=== PATIENT | male | born 1995 | race Caucasian/White ===

== ENCOUNTER → 2020-12-26 13:46 | Outpatient (BNVA) | payer OTHER, SELFPAY | PROVIDERS: PCP Physician Assistant; Visit Provider Internal Medicine ==

== ENCOUNTER → 2021-02-20 09:27 | Outpatient (BNVA) | payer OTHER, SELFPAY | PROVIDERS: PCP Physician Assistant; Visit Provider Internal Medicine ==

== ENCOUNTER 2021-02-25 07:58 | Outpatient (REF) | payer OTHER, SELFPAY ==
[2021-02-25 09:13] LABS: Anion Gap 11 (12-20); Blood Urea Nitrogen 17 mg/dL (9-16); Carbon Dioxide 27 mmol/L (22-29); Chloride 104 mmol/L (96-108); Estimated Glomerular Filt Rate > 60; Glucose Random 94 mg/dL (60-115); Potassium 4.4 mmol/L (3.3-5.1); Sodium 138 mmol/L (135-145)
[2021-02-25 09:23] LABS: Osmolality, Serum 291 mosm/kg (281-305)
[2021-02-25 09:32] LABS: Osmolality Urine 703 mosm/kg (373-1093)
[2021-02-25 09:37] LABS: Free T4 (Free Thyroxine) 0.91 ng/dL (0.71-1.85); Thyroid Stimulating Hormone 2.65 uIU/mL (0.32-4.0)
[2021-02-27 05:42] LABS: Triiodothyronine T3 Total 104 ng/dL (76-181)
[2021-02-27 06:21] LABS: Sex Hormone Binding Globulin 26 nmol/L (10-50)
[2021-03-01 15:07] LABS: IGF-1 (Somatomedin C) 305 ng/mL (83-456)
[2021-03-01 18:21] LABS: Adrenocorticotropic Hormone 7 pg/mL (6-50)
[2021-03-01 23:12] LABS: Estradiol Ultra Sensitive 4 pg/mL (< OR = 29)
[2021-03-02 16:31] LABS: Testosterone, Total 13 ng/dL (250-1100)
[2021-03-04 21:56] LABS: Follicle Stimulating Hormone 0.9 mIU/mL (1.6-8.0); Lutenizing Hormone <0.2 mIU/mL (1.5-9.3); Prolactin Undiluted 5.7 ng/mL (2.0-18.0)
== END 2021-02-25 07:59 | disposition home or self-care (01) ==
LOC: HO.LAB 07:58
PROVIDERS: Visit Provider Internal Medicine
DX: E29.1 Testicular hypofunction (principal)
CPT/HCPCS: 36415; 80048; 82024; 82533; 82670; 83001; 83002; 83930; 83935; 84146; 84270; 84305; 84402; 84403; 84439; 84443; 84480

== ENCOUNTER → 2021-05-08 08:49 | Outpatient (BNVA) | payer OTHER, SELFPAY | PROVIDERS: Visit Provider Internal Medicine ==

== ENCOUNTER 2021-05-16 06:34 | Outpatient (REF) | payer OTHER, SELFPAY ==
[2021-05-16 07:18] LABS: Hematocrit 43.2 % (42-52)
[2021-05-16 07:46] LABS: Albumin Level 4.6 g/dL (3.5-5.0); Anion Gap 12 (12-20); Blood Urea Nitrogen 12 mg/dL (9-16); Calcium 10.2 mg/dL (8.4-10.2); Carbon Dioxide 28 mmol/L (22-29); Chloride 104 mmol/L (96-108); Estimated Glomerular Filt Rate > 60; Glucose Random 103 mg/dL (60-115); Phosphorus 4.6 mg/dL (2.7-4.5); Potassium 5.1 mmol/L (3.3-5.1); Sodium 139 mmol/L (135-145)
[2021-05-16 08:08] LABS: Prostate Specific Antigen 0.22 ng/mL (<0.05-4.0); Vitamin D 25-OH Total 19.4 ng/mL (>30)
[2021-05-17 16:16] LABS: Adrenocorticotropic Hormone 20 pg/mL (6-50)
[2021-05-17 19:32] LABS: Calcium (PTHI) 10.2 mg/dL (8.6-10.3); PTHI 40 pg/mL (14-64)
[2021-05-18 06:56] LABS: Sex Hormone Binding Globulin 26 nmol/L (10-50)
[2021-05-23 21:02] LABS: Testosterone, Free 2.2 pg/mL (35.0-155.0); Testosterone, Total 15 ng/dL (250-1100)
== END 2021-05-16 06:35 | disposition home or self-care (01) ==
LOC: HO.LAB 06:34
PROVIDERS: PCP Physician Assistant; Visit Provider Internal Medicine
DX: E23.0 Hypopituitarism (principal); M85.80 Other specified disorders of bone density and structure, unspecified site; E55.9 Vitamin D deficiency, unspecified; Z12.5 Encounter for screening for malignant neoplasm of prostate
CPT/HCPCS: 36415; 80048; 82024; 82040; 82306; 82533; 83970; 84100; 84153; 84270; 84402; 84403; 85014; 85018

== ENCOUNTER 2021-05-20 08:11 | Outpatient (REF) | payer OTHER, SELFPAY ==
[2021-05-21 21:22] LABS: Cortisol 60 Minute 33.8 mcg/dL; Cortisol Baseline 14.1 mcg/dL; Cortisol Baseline Time 1 BASELINE
[2021-05-21 22:22] LABS: Adrenocorticotropic Hormone 20 pg/mL (6-50)
== END 2021-05-20 08:12 | disposition home or self-care (01) ==
LOC: HO.MDS 08:11
PROVIDERS: PCP Internal Medicine; Visit Provider Internal Medicine
DX: E27.40 Unspecified adrenocortical insufficiency (principal)
CPT/HCPCS: 36415; 82024; 82533; 96374; J0834

== ENCOUNTER 2021-05-21 10:58 | Outpatient (REF) | payer OTHER, SELFPAY ==
--- NOTE | ~2021-05-21 | MR_ITS ---
EXAMINATION: MR BRAIN WITHOUT AND WITH CONTRAST CLINICAL INFORMATION: Hypopituitarism. COMPARISON: None. TECHNIQUE: Multiplanar, multisequential imaging was obtained without and with intravenous administration of contrast. Intravenous contrast: Gadavist 4 mL. Slightly limited study with motion artifacts. FINDINGS: No abnormal focus of decreased differential enhancement is seen within the pituitary gland. The infundibulum is midline. The cavernous sinuses opacify symmetrically. The internal carotid artery flow voids are maintained. No suprasellar soft tissue abnormality is seen. No diffusion abnormalities are identified to suggest an acute or subacute infarct. The ventricles are normal in size. No mass effect or midline shift is seen. No brain parenchymal signal abnormalities are seen. No extra-axial fluid collections are noted. The brainstem and cerebellum are normal. On postcontrast imaging, there is no abnormal parenchymal or leptomeningeal enhancement. The craniovertebral junction, marrow signal, and midline structures are normal. The mastoid air cells and paranasal sinuses are well aerated. MR/MR head/brain wo/w con IMPRESSION: No pituitary abnormality identified. Normal slightly limited MRI of the brain with motion artifacts. No acute process.
== END 2021-05-21 10:59 | disposition home or self-care (01) ==
LOC: HO.MRI 10:58
PROVIDERS: PCP Internal Medicine; Visit Provider Internal Medicine
DX: E23.0 Hypopituitarism (principal)
CPT/HCPCS: 70553; A9585

== ENCOUNTER 2021-05-22 14:39 | Outpatient (REF) | payer OTHER, SELFPAY ==
--- NOTE | ~2021-05-22 | MM_ITS ---
EXAMINATION: BONE DENSITOMETRY CLINICAL INDICATION: Other specified disorders of bone density and structure. Age 25, male. COMPARISON: None (current study represents initial baseline exam). TECHNIQUE: Using a [employer] DXA System (software version: 13.1) manufactured by [employer], dual-energy x-ray absorptiometry was performed of the lumbar spine and left hip. The images are of good technical quality. Based on ISCD (International Society for Clinical Densitometry) standards of reporting, Z-scores instead of T-scores are reported in this male patient younger than age 50. Summary results are attached. FINDINGS: AP SPINE L1-L4: BMD 0.950 g/cm2, T-score -2.3, Z-score -3.0, Z-score below expected range for age. LEFT FEMUR, NECK: BMD 0.796 g/cm2, T-score -2.1, Z-score -2.8, Z-score below expected range for age. LEFT FEMUR, TOTAL: BMD 0.779 g/cm2, T-score -2.2, Z-score -2.7, Z-score below expected range for age. IDENTIFIED RISK FACTORS: Secondary osteoporosis. HISTORY OF FRACTURE: None listed. MEDICATIONS: None listed. MM/XR DEXA axial skeleton IMPRESSION: 1. DIAGNOSIS: Based on the lowest Z-score value of -3.0 in the lumbar spine, the patient's bone density is below the expected range for age. 2. 10-YEAR FRACTURE RISK PREDICTION, FRAX: Not performed in this patient outside the age range of 50-90 years. 3. Treatment Recommendations: NOF guidelines recommend consideration for treatment in postmenopausal women and men age 50 and older presenting with the following: -A hip or vertebral (clinical or morphometric) fracture. -T-score less than or equal to -2.5 at the femoral neck or spine after appropriate evaluation to exclude secondary causes. -Low bone mass at the hip or spine and a 10-year fracture probability by FRAX of greater than or equal to 3% for hip fracture or greater than or equal to 20% for major osteoporotic fracture based on the [place] adapted WHO algorithm. 4. Other Recommendations: All treatment decisions require clinical judgment and consideration of individual patient factors, including patient preferences, comorbidities, previous drug use, risk factors not captured in the FRAX model (e.g. frailty, falls, vitamin D deficiency, increased bone turnover, interval significant decline in bone density) and possible under or overestimation of fracture risk by FRAX. Additional medical evaluation for secondary cause of low bone mineral density may be appropriate. FUTURE SCAN RECOMMENDATION: People with diagnosed cases of osteoporosis or at high risk for fracture should have regular bone mineral density tests. For patients eligible for Medicare, routine testing is allowed once every 2 years. The testing frequency can be increased to one year for patients who have rapidly progressing disease, those who are receiving or discontinuing medical therapy to restore bone mass, or have additional risk factors.
== END 2021-05-22 14:40 | disposition home or self-care (01) ==
LOC: HO.MAMMO 14:39
PROVIDERS: Visit Provider Internal Medicine
DX: Z13.820 Encounter for screening for osteoporosis (principal); M85.80 Other specified disorders of bone density and structure, unspecified site
CPT/HCPCS: 77080

== ENCOUNTER → 2021-09-16 08:35 | Outpatient (BNVA) | payer OTHER, SELFPAY | PROVIDERS: PCP Physician Assistant; Visit Provider Internal Medicine ==

== ENCOUNTER 2022-01-27 12:27 | Outpatient (REF) | payer OTHER, SELFPAY ==
[2022-01-27 13:53] LABS: Alanine Aminotransferase 18 U/L (0-40); Albumin Level 4.3 g/dL (3.5-5.0); Alkaline Phosphatase 101 U/L (39-117); Anion Gap 13 (12-20); Aspartate Amino Transferase 20 U/L (5-37); Bilirubin Total 0.3 mg/dL (0.0-1.0); Blood Urea Nitrogen 17 mg/dL (9-16); Calcium 10.1 mg/dL (8.4-10.2); Carbon Dioxide 27 mmol/L (22-29); Chloride 105 mmol/L (96-108); Estimated Glomerular Filt Rate > 60; Glucose Random 99 mg/dL (60-115); Phosphorus 4.5 mg/dL (2.7-4.5); Sodium 140 mmol/L (135-145); Total Protein 7.2 g/dL (6.5-8.0)
[2022-01-27 14:03] LABS: Vitamin D 25-OH Total 22.7 ng/mL (>30)
[2022-01-28 12:42] LABS: Calcium (PTHI) 9.7 mg/dL (8.6-10.3); PTHI 51 pg/mL (16-77)
[2022-01-28 21:17] LABS: Sex Hormone Binding Globulin 25 nmol/L (10-50)
[2022-01-31 20:27] LABS: Testosterone, Free 1.6 pg/mL (35.0-155.0); Testosterone, Total 11 ng/dL (250-1100)
== END 2022-01-27 12:28 | disposition home or self-care (01) ==
LOC: HO.LAB 12:27
PROVIDERS: PCP Physician Assistant; Visit Provider Internal Medicine
DX: M85.80 Other specified disorders of bone density and structure, unspecified site (principal); E55.9 Vitamin D deficiency, unspecified; E29.1 Testicular hypofunction
CPT/HCPCS: 36415; 80053; 82306; 83970; 84100; 84270; 84402; 84403

== ENCOUNTER → 2022-02-03 10:11 | Outpatient (BNVA) | payer OTHER, SELFPAY | PROVIDERS: PCP Physician Assistant; Visit Provider Internal Medicine | DX: Z13.89 Encounter for screening for other disorder (principal) ==

== ENCOUNTER 2022-03-21 10:50 | Outpatient (REF) | payer OTHER, SELFPAY ==
[2022-03-21 11:46] LABS: Hematocrit 39.2 % (42.0-52.0); Hemoglobin 13.1 g/dl (14.0-18.0)
[2022-03-21 12:09] LABS: Albumin Level 4.3 g/dL (3.5-5.0); Calcium 9.7 mg/dL (8.4-10.2); Phosphorus 4.5 mg/dL (2.7-4.5)
[2022-03-21 12:35] LABS: Prostate Specific Antigen 0.16 ng/mL (<0.05-4.0); Vitamin D 25-OH Total 30.1 ng/mL (>30)
[2022-03-23 03:37] LABS: Sex Hormone Binding Globulin 20 nmol/L (10-50)
[2022-03-26 22:42] LABS: Calcium (PTHI) 9.2 mg/dL (8.6-10.3); PTHI 53 pg/mL (16-77)
[2022-03-27 13:06] LABS: Testosterone, Free 31.1 pg/mL (35.0-155.0); Testosterone, Total 129 ng/dL (250-1100)
== END 2022-03-21 10:51 | disposition home or self-care (01) ==
LOC: HO.LAB 10:50
PROVIDERS: Visit Provider Internal Medicine
DX: E29.1 Testicular hypofunction (principal); E55.9 Vitamin D deficiency, unspecified; M85.80 Other specified disorders of bone density and structure, unspecified site
CPT/HCPCS: 36415; 82040; 82306; 82310; 83970; 84100; 84153; 84270; 84402; 84403; 85014; 85018

== ENCOUNTER 2022-05-14 08:14 | Outpatient (REF) | payer OTHER, SELFPAY ==
[2022-05-14 08:44] LABS: Hematocrit 39.1 % (42.0-52.0); Hemoglobin 12.9 g/dl (14.0-18.0); Mean Corpuscular Hemoglobin 27.6 pg (27.0-33.0); Mean Corpuscular Volume 83.5 fL (80.0-98.0); Mean Platelet Volume 9.7 fL (9.4-12.4); Platelet Count 337 X10*3/uL (160-400); Red Blood Count 4.68 X10*6/uL (4.60-5.80); Red Cell Distribution Width 13.2 % (11.0-16.0); White Blood Count 5.4 X10*3/uL (4.8-10.8)
[2022-05-14 09:10] LABS: Iron 103 mcg/dL (45-160); Percent Iron Saturation 33 % (15-50); Total Iron Binding Capacity 310 mcg/dL (228-428); Unsaturated Iron Binding 207 ug/dL
[2022-05-14 09:31] LABS: Ferritin 74 ng/mL (20-250)
[2022-05-14 09:34] LABS: Vitamin D 25-OH Total 34.2 ng/mL (>30)
[2022-05-14 09:38] LABS: Folate 5.2 ng/mL (> or = 4.0); Vitamin B12 539 pg/mL (200-900)
[2022-05-16 10:27] LABS: Sex Hormone Binding Globulin 22 nmol/L (10-50)
[2022-05-21 20:36] LABS: Testosterone, Free 36.3 pg/mL (35.0-155.0); Testosterone, Total 204 ng/dL (250-1100)
== END 2022-05-14 08:15 | disposition home or self-care (01) ==
LOC: HO.LAB 08:14
PROVIDERS: PCP Physician Assistant; Visit Provider Internal Medicine
DX: D50.9 Iron deficiency anemia, unspecified (principal); E53.8 Deficiency of other specified B group vitamins; E29.1 Testicular hypofunction; E55.9 Vitamin D deficiency, unspecified
CPT/HCPCS: 36415; 82306; 82607; 82728; 82746; 83540; 84270; 84402; 84403; 85027

== ENCOUNTER → 2022-07-21 13:08 | Outpatient (BNVA) | payer OTHER, SELFPAY | PROVIDERS: PCP Physician Assistant; Visit Provider Internal Medicine | DX: E29.1 Testicular hypofunction (principal); E23.0 Hypopituitarism; M81.0 Age-related osteoporosis without current pathological fracture; E55.9 Vitamin D deficiency, unspecified | CPT/HCPCS: 99212 ==

== ENCOUNTER 2022-09-05 06:39 | Outpatient (REF) | payer OTHER, SELFPAY ==
[2022-09-05 07:25] LABS: Hemoglobin 13.7 g/dl (14.0-18.0)
== END 2022-09-05 06:40 | disposition home or self-care (01) ==
LOC: HO.LAB 06:39
PROVIDERS: Visit Provider Internal Medicine
DX: E29.1 Testicular hypofunction (principal)
CPT/HCPCS: 36415; 84402; 84403; 85014; 85018

== ENCOUNTER 2022-11-03 10:59 | Outpatient (REF) | payer OTHER, SELFPAY ==
[2022-11-03 12:15] LABS: Hematocrit 41.8 % (42.0-52.0); Hemoglobin 13.5 g/dl (14.0-18.0)
[2022-11-03 12:54] LABS: Prostate Specific Antigen 0.54 ng/mL (<0.05-4.0)
[2022-11-04 11:08] LABS: Sex Hormone Binding Globulin 26 nmol/L (10-50)
[2022-11-11 11:39] LABS: Testosterone, Free 4.6 pg/mL (35.0-155.0); Testosterone, Total 34 ng/dL (250-1100)
== END 2022-11-03 11:00 | disposition home or self-care (01) ==
LOC: HO.LAB 10:59
PROVIDERS: Visit Provider Internal Medicine
DX: Z12.5 Encounter for screening for malignant neoplasm of prostate (principal); E23.0 Hypopituitarism
CPT/HCPCS: 36415; 84153; 84270; 84402; 84403; 85014; 85018

== ENCOUNTER 2023-08-31 16:07 | Outpatient (AMB) | payer OTHER, SELFPAY ==
--- NOTE | 2023-08-31 16:08 | MHC.PC.OV ---
Vital Signs 08/31/23 16:09 Height 6 ft 0.5 in Weight 298 lb BMI 39.9 BP 138/78 Blood Pressure Location Lt brachial Position Sitting Pulse 90 Pulse Source Pulse Oximeter Pulse Oximetry (%) 95 Oxygen Delivery Method Room Air Intake Visit Reasons: Annual Physical Check Viewer Required: No Hand Roller: Present Accompanied by: Mother Allergies Seasonal Allergies Allergy (Unknown, Verified 08/31/23 16:23) Sneezing Medication List - Last Reconciled 08/31/23 by Alan Piña PA-C cholecalciferol (vitamin D3) 50 mcg PO DAILY 30 days testosterone 1 patch transdermal DAILY 30 days Tobacco use date assessed: 08/31/23 Dental Screening Dental Screen Date: 08/31/23 Did you have a dental visit in the last 12 months?: Yes Did you have a dental problem in the last 6 months where you did not have access to dental care?: No Was dental information given to patient?: Patient has dentist HPI Annual Physical HPI Details Patient is a 28 year old male here today here for an annual physical. 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 *Recently had a in the family and has been somewhat melancholy as of lately. Patient has sees Endocrinology and has gotten workup including MRI of brain (no pituitary abnormality) , bone density screening (showing osteoporosis of lumbar spine) , testosterone levels low. UNFORTUNATELY HAS LOST FOLLOW-UP WITH ENDOCRINOLOGY. He was on testosterone topical treatment. Mother reports topical gel is not effective in needs transdermal patches. Unfortunately he has also gained a significant amount of weight since last office visit. Does report dietary indiscretion and has an addiction to Coca-Cola. Mother reports she will work on helping him reduce the amount of Coca-Cola he is drinking. Also has not physically active at all. vaccine: UTD with COVID vaccine, up-to-date with flu and tetanus vaccine FORMERLY [facility], [facility] Medical History Anemia Osteoporosis Vitamin D deficiency Osteopenia Low serum cortisol level Hypogonadism in male Surgical History Status post orchiopexy Family History Mother Tachycardia Father No problems noted. Maternal Grandmother Obesity Type 2 diabetes mellitus Sister Type 1 diabetes mellitus Social History (Updated 08/31/23 @ 16:27 by Alan Piña PA-C) Household Members Other:: mother Housing: House Alcohol intake: never Patient Tobacco Use Status: Never used Tobacco e-Cigarette/Vaping Use: Never Used Second Hand Smoke Exposure: No service: No Current occupational status: unemployed Cognitive needs: No Hearing needs: No Vision needs: Yes Questionnaire PHQ-9 Over the last 2 weeks, how often have you been bothered by any of the following problems? 1. Little interest or pleasure in doing things: not at all 2. Feeling down, depressed, or hopeless: not at all 3. Trouble falling or staying asleep, or sleeping too much: not at all 4. Feeling tired or having little energy: not at all 5. Poor appetite or overeating: not at all 6. Feeling bad about yourself - or that you are a failure or have let yourself or your family down: not at all 7. Trouble concentrating on things, such as reading the newspaper or watching television: not at all 8. Moving or speaking so slowly that other people could have noticed. Or the opposite - being so fidgety or restless that you have been moving around a lot more than usual: not at all 9. Thoughts that you would be better off or of hurting yourself in some way: not at all Total score: 0 Depression Screening Interpretation: Negative Depression Screening Done: Yes 67222 - PHQ-9 Billing: Yes Source: Developed by Drs. Jan Vogel, Karen Reyes, Jamari Carney and colleagues, with an educational mely from [employer]. Thrive Questionnaire Date Thrive assessed: 08/31/23 I am a: Patient What is your living situation today?: I have a steady place to live Within the past 12 months, did the food you bought not last and you didn't have the money to get more?: Never true Within the past 12 months, did you worry whether your food would run out before you got money to buy more?: Never true Do you have trouble paying for medicines?: No Do you have trouble getting transportation to medical appointments?: No Do you have trouble paying your heating and electricity bill?: No Do you have trouble taking care of your child, family member or friend?: No Do you have trouble with day-to-day activities such as bathing, preparing meals, shopping, managing finances, etc.?: No Are you currently unemployed and looking for a job?: No Are you interested in more education?: No Please select the resources that you would like help with: None Currently or been in a relationship where the following occur: no concerns reported AUDIT C Alcohol Use Questionnaire (AUDIT-C) 1. How often do you have a drink containing alcohol?: Never 3. How often do you have six or more drinks on one occasion?: Never Total Score: 0 XI-7 AMB Questionnaire XI-7 Date XI - 7 assessed: 08/31/23 Feeling nervous, anxious, or on edge: 0 = Not at all Not being able to stop or control worryin = Not at all Worrying too much about different things: 0 = Not at all Trouble relaxin = Not at all Being so restless that it is hard to sit still: 0 = Not at all Becoming easily annoyed or irritable: 0 = Not at all Feeling afraid as if something awful might happen: 0 = Not at all Total XI-7 score (0-4 normal; 5-9 mild; 10-14 moderate; 15-21 severe): 0 Source: Developed by Drs. Jna Vogel, Karen Reyes, Jamari Carney and colleagues, with an educational mely from [employer]. XI-7 Assessment Billing XI-7 Assessment Tool: XI-7 Assessment 94939 Review of Systems Const Denies body aches, Denies chills, Denies excessive sweating, Denies fatigue, Denies fever(s) and Denies headache(s) Eyes Denies blurry vision ENT Denies dysphagia, Denies vertigo, Denies dizziness, Denies headache(s), Denies hearing loss and Denies tinnitus Card Denies chest pain, Denies chest pain with activity, Denies syncope, Denies irregular heart rhythm and Denies dyspnea Resp Denies chest congestion, Denies cough, Denies hemoptysis, Denies dyspnea and Denies wheezing GI Denies abdominal pain, Denies melena, Denies hematochezia, Denies coffee ground emesis, Denies dysphagia, Denies diarrhea, Denies nausea and Denies vomiting Denies difficulty urinating, Denies dysuria, Denies urinary frequency, Denies urinary hesitancy and Denies urinary urgency Musc Denies arthralgias, Denies limited range of motion, Denies muscle cramps and Denies muscle weakness Skin/Breast Denies rash and Denies skin ulcer Neuro Denies Abnormal speech present, Denies confusion, Denies vertigo, Denies dizziness, Denies syncope, Denies headache(s), Denies memory loss and Denies seizure-like activity Psych Denies anxiety, Denies confusion, Denies depression, Denies memory loss, Denies panic attacks and Denies paranoia Endo Denies excessive sweating, Denies fatigue, Denies flushing, Denies polydipsia and Denies polyuria Aller/Immun Denies wheezing Physical exam (Primary Care) Vital Signs: Last Vital Signs Pulse 90 08/31/23 16:09 BP 138/78 08/31/23 16:09 Pulse Ox 95 08/31/23 16:09 Oxygen Delivery Method Room Air 08/31/23 16:09 BMI result Body Mass Index 39.9 BMI Assessment/Plan discussion: High Tobacco/Smoking Status: Tobacco use Status Tobacco use date assessed 08/31/23 08/31/23 16:16 Patient Tobacco Use Status Never used Tobacco 08/31/23 16:27 e-Cigarette/Vaping Use Never Used 08/31/23 16:27 PHQ-9: PHQ-9 Score PHQ-9: Total score 0 08/31/23 16:33 Depression Screening Interpretation: Negative Thrive Assessment: Date of Thrive Assessment Date Thrive assessed 08/31/23 08/31/23 16:16 Currently or been in a relationship where the following occur: no concerns reported Const Other: Obese General: cooperative, comfortable, no acute distress, alert and awake; No confusion Orientation/consciousness: oriented to person, oriented to place, patient oriented x3 and No confusion HENMT Head: Yes normocephalic Ears: external ears normal and TM's normal bilaterally Face and sinus: No sinus tenderness Mouth: Normal oral and palatal mucosa present and tongue normal Teeth and gingiva: dentition normal and gingiva normal Throat: Yes posterior oropharynx normal, Yes tonsils normal and Yes uvula midline Eyes Conjunctivae: conjunctivae normal Sclerae: sclerae normal Pupils: Equal, round and reactive pupils present EOM: EOMs intact bilaterally Direct Ophthalmoscopy: No no photophobia Neck Neck: Yes no lymphadenopathy, No tender and Yes no JVD Thyroid: Thyroid normal Carotids: no bruits Chest Chest palpation & inspection: no tenderness Resp Effort & Inspection: normal respiratory effort, no audible wheezes, not labored and no stridor Auscultation: no crackles, no rales, no rhonchi and no wheezes Cardio Jugular venous distension: no JVD Rate: regular rate, not bradycardic and not tachycardic Rhythm: regular rhythm Bruits: no carotid bruits Peripheral pulses: Peripheral pulses 2+ throughout GI Inspection: Yes normal to inspection, No abdominal wall ecchymosis and No visible herniation Palpation (GI): Soft to palpation, nontender, no guarding, not rigid and No hepatosplenomegaly present Auscultation: normoactive bowel sounds General: Yes no CVA tenderness Back/Spine/Pelvis Back: no CVA tenderness and No back tenderness Cervical Spine: cervical ROM normal Thoracic/Lumbar Spine: thoracic and lumbar spine normal to inspection, straight leg raise negative bilaterally, No thoraco-lumbar ROM limited and No lumbar spinal tenderness Skin Lesions: no lesions Rashes: no rashes Wounds: no wounds Neuro General: oriented to person, oriented to place, patient oriented x3, CN's II-XI intact bilaterally and No confusion Cranial nerves: Yes Equal, round and reactive pupils present and Yes Normal accommodation reflex present Cognition (Neuro): normal cognition Speech: No Abnormal speech present Gait exam (Neuro): Normal gait present Motor exam (neuro): 5/5 motor strength present throughout Extrem Right upper extremity: full ROM; no cyanosis Left upper extremity: full ROM; no cyanosis Right lower extremity: no edema Left lower extremity: no edema Psych Appearance: grossly normal Mental Status: mental status grossly normal Affect: normal affect Attitude: cooperative Thought process: Normal thought process present Office Procedures Flu Questionnaire Does the patient have a severe egg allergy?: No Does the patient have severe life threatening allergies?: No Does the patient have a fever or illness today?: No Has the patient ever had Guillain-Clarkton Syndrome?: No Has the patient ever had any past reaction to a flu shot?: No Immunizations flu vacc [id number] 6mos up(PF) 60 mcg(15 mcgx4)/0.5 mL IM syringe Performing Provider: Alan Piña PA-C [facility] Administered by: COREY Gamez on 08/31/23 16:20 Dose Route Admin Location Dispensed Lot Number Expiration Date NDC Fire Management Specialist 0.5 mL IM Left Deltoid 0.5 mL [id number] 03/20/24 [id number] [employer] VIS Given Date VIS Provided VIS Publication Date 08/31/23 Single Vaccine 21 Eligibility Eligibility Date Funding Source Not [facility] Eligible 08/31/23 Private Assessment and Plan Assessment & Plan (1) Annual physical exam: Code(s): Z00.00 - Encounter for general adult medical examination without abnormal findings (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 (3) Hypogonadism in male: Code(s): E29.1 - Testicular hypofunction Plan: As above (4) Asperger syndrome: Code(s): F84.5 - Asperger's syndrome Plan: Continues to live at home with mom whom watches over him. (5) Obese: Code(s): E66.9 - Obesity, unspecified Qualifiers: Body mass index: BMI 39.0-39.9 Obesity classification: adult class 2 (BMI 35 - 39.9) Obesity type: due to excess calories Serious obesity comorbidity presence: without serious comorbidity Qualified Code(s): E66.09 - Other obesity due to excess calories; Z68.39 - Body mass index [BMI] 39.0-39.9, adult Plan: Today BMI of 39.9. Has gained significant amount of weight since last office visit and does understand he needs to be more physically active and adapt to better eating habits. Does have somewhat of an addiction to soda (2 L per day) and will try to reduce the amount of soda he is drinking on a daily basis. Orders: Orders Influenza [id number] Immunization 08/31/23 Z23 - Encounter for immunization Comprehensive Onia. Panel Fast 08/31/23 Z13.1 - Encounter for screening for diabetes mellitus Testosterone, Free/Total 08/31/23 E23.0 - Hypopituitarism Complete Blood Count no Diff 08/31/23 E23.0 - Hypopituitarism Referrals Endocrinology Referral E23.0 - Hypopituitarism, E29.1 - Testicular hypofunction Coding Level of Care Code Est Pt Prev Care [id number]) Diagnoses Annual physical exam Z00.00 Kallman syndrome E23.0 Hypogonadism in male E29.1 Asperger syndrome F84.5 Class 2 obesity due to excess calories without serious comorbidity with body mass index (BMI) of 39.0 to 39.9 in adult E66.09; Z68.39 Body mass index: BMI 39.0-39.9 Obesity classification: adult class 2 (BMI 35 - 39.9) Obesity type: due to excess calories Serious obesity comorbidity presence: without serious comorbidity Additional Codes XI-7 Assessment Billing - XI-7 Assessment Tool: XI-7 Assessment [id number] ([id number])
[2023-08-31 16:09] VITALS: BP 138/78; PULSE 90; O2SAT 95; BMI 39.9
== END 2023-08-31 16:53 | disposition home or self-care (01) ==
PROVIDERS: Visit Provider Physician Assistant
DX: Z23 Encounter for immunization (principal)
CPT/HCPCS: 90471; 90686; 99395

== ENCOUNTER 2024-08-31 13:10 | Outpatient (REF) | payer OTHER, SELFPAY ==
[2024-08-31 14:07] LABS: Hematocrit 44.1 % (42.0-52.0); Hemoglobin 14.4 g/dl (14.0-18.0); Mean Corpuscular HGB Conc 32.7 g/dl (31.0-36.0); Mean Corpuscular Hemoglobin 25.8 pg (27.0-33.0); Mean Platelet Volume 9.9 fL (9.4-12.4); Platelet Count 434 X10*3/uL (160-400); Red Blood Count 5.58 X10*6/uL (4.60-5.80); Red Cell Distribution Width 14.2 % (11.0-16.0); White Blood Count 7.6 X10*3/uL (4.8-10.8)
[2024-08-31 14:53] LABS: Alanine Aminotransferase 49 U/L (0-40); Albumin Level 4.2 g/dL (3.5-5.0); Alkaline Phosphatase 122 U/L (39-117); Anion Gap 11 (12-20); Aspartate Amino Transferase 33 U/L (5-37); Bilirubin Total 0.3 mg/dL (0.0-1.0); Blood Urea Nitrogen 16 mg/dL (9-16); Calcium 10.3 mg/dL (8.4-10.2); Carbon Dioxide 25 mmol/L (22-29); Chloride 107 mmol/L (96-108); Estimated Glomerular Filt Rate > 60; Glucose Fasting 106 mg/dL (60-99); Potassium 4.6 mmol/L (3.3-5.1); Sodium 138 mmol/L (135-145); Total Protein 7.9 g/dL (6.5-8.0)
[2024-08-31 15:09] LABS: Vitamin D 25-OH Total 26.1 ng/mL (>30)
[2024-09-05 18:19] LABS: Testosterone, Total 15 ng/dL (250-1100)
== END 2024-08-31 13:11 | disposition home or self-care (01) ==
LOC: HO.LAB 13:10
PROVIDERS: PCP Physician Assistant; Visit Provider Physician Assistant
DX: Z13.1 Encounter for screening for diabetes mellitus (principal); E55.9 Vitamin D deficiency, unspecified; E29.1 Testicular hypofunction
CPT/HCPCS: 36415; 80053; 82306; 84402; 84403; 85027